=== PATIENT | female | born 1990 ===

== ENCOUNTER 2018-07-09 22:51 | Inpatient (IN) ==
[2018-07-10] MEDS: LACTATED RINGERS 1,000 ML IV SCH ×3 (00:28→19:50)
[2018-07-10] MEDS ORDERED: MEPERIDINE 25 MG/1 ML VIAL IV PRN (01:00)
[2018-07-10] MEDS ORDERED: ONDANSETRON 4 MG/2 ML VIAL IV PRN (01:00)
[2018-07-10] MEDS: ACETAMINOPHEN/CODEINE 300-30 MG TABLET PO PRN (01:05)
[2018-07-10] MEDS ORDERED: DEXTROSE 50% 25 GM/50 ML VIAL IV PRN (01:47)
[2018-07-10] MEDS ORDERED: GLUCAGON 1 MG VIAL IM PRN (01:47)
[2018-07-10] MEDS: AMPICILLIN INJ 2,000 MG in SODIUM CHLORIDE 0.9% 100 ML IV SCH ×4 (03:51→20:50)
[2018-07-10] MEDS: ACETAMINOPHEN 325 MG TABLET PO PRN ×2 (11:32→19:42)
[2018-07-11] MEDS: AMPICILLIN INJ 2,000 MG in SODIUM CHLORIDE 0.9% 100 ML IV SCH ×4 (03:52→21:17)
[2018-07-11] MEDS: LACTATED RINGERS 1,000 ML IV SCH ×3 (04:27→22:13)
[2018-07-11] MEDS: ACETAMINOPHEN/CODEINE 300-30 MG TABLET PO PRN (07:20)
[2018-07-11] MEDS: MULTIVITAMIN (PRENATAL) TABLET PO SCH (08:31)
[2018-07-11] MEDS: ACETAMINOPHEN 325 MG TABLET PO SCH ×2 (15:17→21:16)
[2018-07-12] MEDS: ACETAMINOPHEN/CODEINE 300-30 MG TABLET PO PRN (00:21)
[2018-07-12] MEDS: AMPICILLIN INJ 2,000 MG in SODIUM CHLORIDE 0.9% 100 ML IV SCH ×2 (03:48→09:30)
[2018-07-12] MEDS: ACETAMINOPHEN 325 MG TABLET PO SCH ×2 (03:49→09:30)
[2018-07-12] MEDS: LACTATED RINGERS 1,000 ML IV SCH (06:42)
[2018-07-12] MEDS: MULTIVITAMIN (PRENATAL) TABLET PO SCH (09:30)
[2018-07-12 11:26] VITALS: BP 104/64
[2018-07-12] MEDS ORDERED: FLUTICASONE 50 MCG NASAL SPRAY 16 GM BOTTLE BOTH NARES SCH (13:12)
== END 2018-07-12 14:15 | disposition home or self-care (01) | DRG 566 ==
LOC: N.LDOUT 22:51 → N.LD 22:51 → N.OB 07-10 00:42
PROVIDERS: ADMIT Obstetrics & Gynecology; ATTEND Obstetrics & Gynecology

== ENCOUNTER 2018-09-01 05:47 | Inpatient (IN) ==
[2018-09-01] MEDS ORDERED: MEPERIDINE 50 MG/1 ML VIAL IV PRN (06:15)
[2018-09-01] MEDS ORDERED: ONDANSETRON 4 MG/2 ML VIAL IV PRN ×2 (06:15→14:33)
[2018-09-01] MEDS ORDERED: BUTORPHANOL 2 MG/ML VIAL IV PRN (06:15)
[2018-09-01 06:29] LABS: Basophils # 0.1 10*3/uL (0.0-0.2); Basophils % 0.5 % (0.0-0.8); Eosinophils # 0.5 10*3/uL (0.0-0.87); Eosinophils % 4.6 % (0.00-10.9); Hemoglobin 10.9 GM/DL (12.0-16.0); Lymphocytes # 2.5 10*3/uL (1.4-4.0); Lymphocytes % 24.4 % (21.3-54.2); Mean Corpuscular HGB Conc 32.1 GM/DL (32-36); Mean Corpuscular Volume 85.9 FL (87-102); Mean Platelet Volume 9.4 FL (9.6-12.0); Monocytes % 6.9 % (1.7-12.7); Neutrophils % 62.6 % (38.7-73.9); Platelet Count 251 T/CUMM (130-400); Red Blood Count 3.96 MC/CUMM (3.8-5.5); Red Cell Distribution Width 15.9 % (9.3-17.3); White Blood Count 10.4 T/CUMM (4-12)
[2018-09-01] MEDS ORDERED: OXYTOCIN/LR 20 UNIT/1,000 ML BAG IV SCH (06:30)
[2018-09-01] MEDS ORDERED: LACTATED RINGERS 1,000 ML IV SCH ×2 (06:30→07:00)
[2018-09-01] MEDS ORDERED: FAMOTIDINE 20 MG/2 ML VIAL IV ONE (06:40)
[2018-09-01] MEDS ORDERED: CITRIC ACID/SODIUM CITRATE 30 ML UDCUP PO ONE (06:40)
[2018-09-01] MEDS ORDERED: ceFAZolin 2,000 MG in PREMIX 1 EACH IV ONE (06:43)
[2018-09-01 06:54] LABS: Alanine Aminotransferase < 9 U/L (13-56); Albumin 2.3 G/DL (3.4-5.0); Alkaline Phosphatase 303 U/L (45-117); Aspartate Amino Transferase 18 U/L (0-37); Bilirubin,Total < 0.39 MG/DL (0.2-1.0); Blood Urea Nitrogen 12 MG/DL (7-18); Calcium 8.7 MG/DL (8.5-10.1); Glucose 85 MG/DL (74-106); Osmolality,Calculated 281.1 MOS/KG (273-304)
[2018-09-01] MEDS ORDERED: ceFAZolin 2,000 MG in SYRINGE 1 EACH IV ONE (07:00)
[2018-09-01] MEDS ORDERED: OXYTOCIN 10 UNIT/ML VIAL IM ONE (08:49)
[2018-09-01] MEDS ORDERED: OXYTOCIN/LR 30 UNIT/1,000 ML BAG IV ONE (09:00)
[2018-09-01] MEDS ORDERED: KETOROLAC 60 MG/2 ML VIAL IM ONE (11:29)
[2018-09-01] MEDS ORDERED: PHENYLEPHRINE 1 MG/10 ML SYRINGE IV ONE ×2 (11:29→13:59)
[2018-09-01] MEDS ORDERED: MORPHINE 10 MG/10 ML VIAL ONE (11:29)
[2018-09-01] MEDS ORDERED: DEXAMETHASONE 4 MG/1 ML VIAL ONE (11:29)
[2018-09-01] MEDS ORDERED: EPINEPHrine 1 MG/ML VIAL ONE (11:29)
[2018-09-01] MEDS ORDERED: fentaNYL 100 MCG/2 ML VIAL ONE (11:29)
[2018-09-01] MEDS ORDERED: BUPIVACAINE SPINAL 0.75% 2 ML AMP SPINAL ONE (11:29)
[2018-09-01] MEDS ORDERED: BUPIVACAINE 0.5% 50 ML VIAL ONE (11:30)
[2018-09-01] MEDS ORDERED: methylPREDNISolone SOD SUC 40 MG/1 ML VIAL IV ONE (13:15)
[2018-09-01 13:24] LABS: Cord Arterial Blood HCO3 18.9 MMOL/L
[2018-09-01 13:26] LABS: Cord Venous Blood HCO3 19.9 MMOL/L; Cord Venous Blood PCO2 43.4 MMHG; Cord Venous Blood PO2 37.1
[2018-09-01] MEDS ORDERED: hydrOXYzine HCL 25 MG/1 ML VIAL IM PRN (13:56)
[2018-09-01] MEDS ORDERED: diphenhydrAMINE 50 MG/1 ML VIAL IV PRN (13:56)
[2018-09-01] MEDS ORDERED: HYDROmorphone 2 MG/1 ML VIAL IV PRN (13:56)
[2018-09-01] MEDS ORDERED: ePHEDrine 50 MG/ML AMP ONE (14:01)
[2018-09-01] MEDS ORDERED: RHO(D) IMMUNE GLOBULIN 300 MCG SYRINGE IM ONE (14:33)
[2018-09-01] MEDS ORDERED: OXYTOCIN/LR 20 UNIT/1,000 ML BAG IV ONE (14:33)
[2018-09-01] MEDS ORDERED: SIMETHICONE CHEW 80 MG TABLET PO PRN (14:33)
[2018-09-01] MEDS ORDERED: MAGNESIUM HYDROXIDE SUSP 30 ML UDCUP PO PRN (14:33)
[2018-09-01] MEDS ORDERED: ACETAMINOPHEN 325 MG TABLET PO PRN (14:33)
[2018-09-01 14:40] LABS: Bacteria,Urine Occasional /HPF (Few); Mucus,Urine Few /LPF (Occasional); RBC,Urine 5 /HPF (0-4); Squamous Epithelial Cell,Urine Many /HPF (0-10); Transitional Epi Cells,Urine Occasional /HPF (<1); WBC,Urine 15 /HPF (0-6)
[2018-09-01 14:43] LABS: Apearance,Urine Cloudy (Clear); Urine Color Yellow (Yellow); Urine Specific Gravity 1.025 (1.001-1.035)
[2018-09-01 14:44] LABS: Bilirubin,Urine Negative (Negative); Blood, Urine Negative (Negative); Glucose,Urine (UA) Negative (Negative); Ketones,Urine Negative (Negative); Nitrite,Urine Negative (Negative); Protein,Urine 30 MG/DL
[2018-09-01] MEDS: KETOROLAC 30 MG/1 ML VIAL IV SCH (20:11)
[2018-09-01] MEDS: ceFAZolin 1,000 MG in SYRINGE 1 EACH IV SCH (20:13)
[2018-09-01] MEDS: DOCUSATE SODIUM 100 MG CAPSULE PO SCH (20:16)
[2018-09-01] MEDS: LACTATED RINGERS 1,000 ML IV SCH (21:04)
[2018-09-02] MEDS: KETOROLAC 30 MG/1 ML VIAL IV SCH ×2 (01:12→07:20)
[2018-09-02] MEDS: ceFAZolin 1,000 MG in SYRINGE 1 EACH IV SCH (03:48)
[2018-09-02 04:27] LABS: Basophils % 0.1 % (0.0-0.8); Hematocrit 26.9 VOL% (35.7-47.0); Immature Granulocytes % 0.6 %; Immature Granulocytes Absolute 0.11 #; Lymphocytes # 1.5 10*3/uL (1.4-4.0); Lymphocytes % 8.3 % (21.3-54.2); Mean Corpuscular HGB Conc 33.1 GM/DL (32-36); Mean Corpuscular Volume 84.9 FL (87-102); Mean Platelet Volume 10.2 FL (9.6-12.0); Monocytes % 5.3 % (1.7-12.7); Neutrophils % 85.7 % (38.7-73.9); Platelet Count 224 T/CUMM (130-400); Red Blood Count 3.17 MC/CUMM (3.8-5.5); Red Cell Distribution Width 15.6 % (9.3-17.3)
[2018-09-02 04:32] LABS: Hemoglobin 8.9 GM/DL (12.0-16.0); White Blood Count 18.1 T/CUMM (4-12)
[2018-09-02] MEDS: LACTATED RINGERS 1,000 ML IV SCH (04:46)
[2018-09-02] MEDS: DOCUSATE SODIUM 100 MG CAPSULE PO SCH ×2 (08:16→21:15)
[2018-09-02] MEDS: MULTIVITAMIN (PRENATAL) TABLET PO SCH (08:16)
[2018-09-02] MEDS: METOCLOPRAMIDE 10 MG TABLET PO SCH ×3 (08:16→23:49)
[2018-09-02] MEDS: FERROUS SULFATE 325 MG TABLET PO SCH ×2 (09:30→21:15)
[2018-09-03] MEDS: IBUPROFEN 800 MG TABLET PO PRN ×2 (02:40→09:54)
[2018-09-03 07:23] VITALS: BP 127/74
[2018-09-03] MEDS: MULTIVITAMIN (PRENATAL) TABLET PO SCH (09:53)
[2018-09-03] MEDS: FERROUS SULFATE 325 MG TABLET PO SCH (09:53)
[2018-09-03] MEDS: DOCUSATE SODIUM 100 MG CAPSULE PO SCH (09:53)
[2018-09-03] MEDS: METOCLOPRAMIDE 10 MG TABLET PO SCH (11:13)
[2018-09-03] MEDS ORDERED: DIPH/TET/ACEL PERT BOOSTER VACCINE 0.5 ML VIAL IM ONE (11:13)
== END 2018-09-03 14:45 | disposition home or self-care (01) | DRG 540 ==
LOC: N.LD 05:47 → N.OB 17:25
PROVIDERS: ADMIT Obstetrics & Gynecology; ATTEND Obstetrics & Gynecology
PROC: LDCSECT (ICD-10-PCS; 2018-09-01 07:45)

== ENCOUNTER 2019-08-26 07:02 | Inpatient (IN) ==
[2019-08-26] MEDS: LACTATED RINGERS 1,000 ML IV SCH ×2 (07:23→08:24)
[2019-08-26] MEDS ORDERED: CITRIC ACID/SODIUM CITRATE 30 ML UDCUP PO ONE (07:41)
[2019-08-26] MEDS ORDERED: ceFAZolin 2,000 MG in PREMIX 1 EACH IV ONE (07:41)
[2019-08-26] MEDS ORDERED: OXYTOCIN 10 UNIT/ML VIAL IM ONE (07:42)
[2019-08-26] MEDS ORDERED: OXYTOCIN/LR 30 UNIT/1,000 ML BAG IV ONE (07:42)
[2019-08-26] MEDS ORDERED: miSOPROStoL 200 MCG TABLET ONE (07:56)
[2019-08-26] MEDS ORDERED: CARBOPROST TROMETHAMINE 250 MCG/ML AMP IM ONE (07:57)
[2019-08-26] MEDS ORDERED: TRANEXAMIC ACID 1,000 MG/10 ML VIAL ONE (07:57)
[2019-08-26] MEDS ORDERED: OXYTOCIN/LR 20 UNIT/1,000 ML BAG IV ONE ×2 (07:57→10:02)
[2019-08-26] MEDS ORDERED: METHYLERGONOVINE 0.2 MG/1 ML AMP ONE (07:57)
[2019-08-26 07:58] LABS: Basophils % 0.4 % (0.0-0.8); Eosinophils # 0.2 10*3/uL (0.0-0.87); Hematocrit 35.3 VOL% (35.7-47.0); Hemoglobin 11.3 GM/DL (12.0-16.0); Immature Granulocytes % 0.7 %; Immature Granulocytes Absolute 0.08 #; Lymphocytes # 2.2 10*3/uL (1.4-4.0); Lymphocytes % 20.2 % (21.3-54.2); Mean Corpuscular Volume 86.5 FL (87-102); Mean Platelet Volume 9.4 FL (9.6-12.0); Monocytes % 6.8 % (1.7-12.7); Neutrophils % 69.9 % (38.7-73.9); Platelet Count 251 T/CUMM (130-400); Red Blood Count 4.08 MC/CUMM (3.8-5.5); Red Cell Distribution Width 14.5 % (9.3-17.3); White Blood Count 10.7 T/CUMM (4-12)
[2019-08-26] MEDS ORDERED: FAMOTIDINE 20 MG/2 ML VIAL IV ONE (08:02)
[2019-08-26] MEDS ORDERED: PROMETHAZINE 25 MG/1 ML VIAL IM PRN (08:03)
[2019-08-26] MEDS ORDERED: hydrOXYzine HCL 25 MG/1 ML VIAL IM PRN (08:03)
[2019-08-26] MEDS ORDERED: ONDANSETRON 4 MG/2 ML VIAL IV ONE (08:03)
[2019-08-26] MEDS ORDERED: ePHEDrine 50 MG/ML VIAL IV PRN (08:03)
[2019-08-26] MEDS ORDERED: diphenhydrAMINE 50 MG/1 ML VIAL IV PRN (08:03)
[2019-08-26 08:37] LABS: Alanine Aminotransferase 12 U/L (13-56); Albumin 2.1 G/DL (3.4-5.0); Alkaline Phosphatase 229 U/L (45-117); Aspartate Amino Transferase 16 U/L (0-37); Bilirubin,Total < 0.39 MG/DL (0.2-1.0); Blood Urea Nitrogen 9 MG/DL (7-18); Calcium 8.2 MG/DL (8.5-10.1); Estimated Glom Filtration Rate 105 ML/MIN; Glucose 75 MG/DL (74-106); Osmolality,Calculated 278.3 MOS/KG (273-304); Total Protein 7.1 G/DL (6.4-8.3)
[2019-08-26] MEDS ORDERED: DEXAMETHASONE 4 MG/1 ML VIAL ONE ×2 (09:16→14:13)
[2019-08-26 09:30] LABS: Cord Venous Blood HCO3 21.3 MMOL/L; Cord Venous Blood PCO2 43.8 MMHG; Cord Venous Blood PO2 34.2
[2019-08-26 09:40] LABS: Apearance,Urine CLEAR (Clear); Bilirubin,Urine Negative (Negative); Blood, Urine Negative (Negative); Glucose,Urine (UA) Negative (Negative); Ketones,Urine Negative (Negative); Mucus,Urine Occasional /LPF (Occasional); Nitrite,Urine Negative (Negative); Protein,Urine Negative; RBC,Urine 1 /HPF (0-4); Squamous Epithelial Cell,Urine Occasional /HPF (0-10); Urine Color Yellow (Yellow); Urine Specific Gravity 1.016 (1.001-1.035); Urine Urobilinogen < 2.0 EU/DL (0.2-1.0); WBC,Urine 4 /HPF (0-6)
[2019-08-26] MEDS ORDERED: ONDANSETRON 4 MG/2 ML VIAL IV PRN (10:02)
[2019-08-26] MEDS ORDERED: ACETAMINOPHEN 325 MG TABLET PO PRN (10:02)
[2019-08-26] MEDS ORDERED: SIMETHICONE CHEW 80 MG TABLET PO PRN (10:02)
[2019-08-26] MEDS ORDERED: RHO(D) IMMUNE GLOBULIN 300 MCG SYRINGE IM ONE (10:02)
[2019-08-26] MEDS ORDERED: LACTATED RINGERS 1,000 ML IV SCH (10:30)
[2019-08-26] MEDS ORDERED: ceFAZolin 1,000 MG in SYRINGE 1 EACH IV SCH (10:30)
[2019-08-26] MEDS ORDERED: HYDROmorphone 2 MG/1 ML VIAL IV ONE (12:01)
[2019-08-26] MEDS ORDERED: ROPIVACAINE 0.5% 30 ML VIAL ONE (14:13)
[2019-08-26] MEDS ORDERED: PHENYLEPHRINE 1 MG/10 ML SYRINGE IV ONE (14:13)
[2019-08-26] MEDS ORDERED: ONDANSETRON 4 MG/2 ML VIAL ONE (14:13)
[2019-08-26] MEDS ORDERED: BUPIVACAINE SPINAL 0.75% 2 ML AMP SPINAL ONE (14:14)
[2019-08-26] MEDS: ceFAZolin 1,000 MG in SYRINGE 1 EACH IV SCH (16:04)
[2019-08-26 18:11] LABS: Basophils % 0.2 % (0.0-0.8); Hematocrit 33.9 VOL% (35.7-47.0); Hemoglobin 11.2 GM/DL (12.0-16.0); Immature Granulocytes % 0.7 %; Immature Granulocytes Absolute 0.12 #; Lymphocytes # 1.1 10*3/uL (1.4-4.0); Lymphocytes % 6.4 % (21.3-54.2); Mean Corpuscular Volume 85.6 FL (87-102); Mean Platelet Volume 9.2 FL (9.6-12.0); Monocytes % 3.3 % (1.7-12.7); Neutrophils % 89.4 % (38.7-73.9); Platelet Count 242 T/CUMM (130-400); Red Blood Count 3.96 MC/CUMM (3.8-5.5)
[2019-08-26 18:15] LABS: White Blood Count 16.8 T/CUMM (4-12)
[2019-08-26] MEDS: DOCUSATE SODIUM 100 MG CAPSULE PO SCH (20:08)
[2019-08-27] MEDS: ceFAZolin 1,000 MG in SYRINGE 1 EACH IV SCH (00:02)
[2019-08-27] MEDS: IBUPROFEN 800 MG TABLET PO PRN ×2 (04:00→19:45)
[2019-08-27 04:52] LABS: Basophils % 0.2 % (0.0-0.8); Eosinophils # 0.1 10*3/uL (0.0-0.87); Eosinophils % 0.3 % (0.00-10.9); Hematocrit 29.2 VOL% (35.7-47.0); Hemoglobin 10.1 GM/DL (12.0-16.0); Immature Granulocytes % 0.4 %; Immature Granulocytes Absolute 0.06 #; Lymphocytes # 2.9 10*3/uL (1.4-4.0); Lymphocytes % 17.7 % (21.3-54.2); Mean Corpuscular HGB Conc 34.6 GM/DL (32-36); Mean Corpuscular Volume 82.3 FL (87-102); Mean Platelet Volume 9.8 FL (9.6-12.0); Monocytes % 8.9 % (1.7-12.7); Neutrophils % 72.5 % (38.7-73.9); Platelet Count 238 T/CUMM (130-400); Red Blood Count 3.55 MC/CUMM (3.8-5.5); Red Cell Distribution Width 14.2 % (9.3-17.3); White Blood Count 16.3 T/CUMM (4-12)
[2019-08-27] MEDS: MULTIVITAMIN (PRENATAL) TABLET PO SCH (09:00)
[2019-08-27] MEDS: MAGNESIUM HYDROXIDE SUSP 30 ML UDCUP PO PRN ×2 (09:00→19:46)
[2019-08-27] MEDS: DOCUSATE SODIUM 100 MG CAPSULE PO SCH ×3 (09:00→21:18)
[2019-08-27] MEDS: METOCLOPRAMIDE 10 MG TABLET PO SCH ×2 (09:00→16:03)
[2019-08-28] MEDS: METOCLOPRAMIDE 10 MG TABLET PO SCH ×2 (06:42→08:40)
[2019-08-28 07:42] VITALS: BP 108/74
[2019-08-28] MEDS: DOCUSATE SODIUM 100 MG CAPSULE PO SCH (08:40)
[2019-08-28] MEDS: MAGNESIUM HYDROXIDE SUSP 30 ML UDCUP PO PRN (08:40)
[2019-08-28] MEDS: IBUPROFEN 800 MG TABLET PO PRN (08:40)
[2019-08-28] MEDS: MULTIVITAMIN (PRENATAL) TABLET PO SCH (08:40)
== END 2019-08-28 13:40 | disposition home or self-care (01) | DRG 788 ==
LOC: N.LD 07:02 → N.OB 13:22
PROVIDERS: ADMIT Obstetrics & Gynecology; ATTEND Obstetrics & Gynecology
PROC: LDCSECT (ICD-10-PCS; 2019-08-26 08:30)

== ENCOUNTER 2021-11-06 09:45 | Inpatient (IN) ==
[2021-11-06] MEDS ORDERED: CITRIC ACID/SODIUM CITRATE 30 ML UDCUP PO ONE (10:08)
[2021-11-06] MEDS ORDERED: CARBOPROST TROMETHAMINE 250 MCG/ML AMP IM PRN (10:08)
[2021-11-06] MEDS ORDERED: miSOPROStoL 200 MCG TABLET RECTAL PRN (10:08)
[2021-11-06] MEDS ORDERED: ceFAZolin 2,000 MG/50 ML DUPLEX IV ONE (10:08)
[2021-11-06] MEDS ORDERED: OXYTOCIN/LR 20 UNIT/1,000 ML BAG IV ONE ×2 (10:08→16:21)
[2021-11-06] MEDS ORDERED: METHYLERGONOVINE 0.2 MG/1 ML AMP IM PRN (10:08)
[2021-11-06] MEDS ORDERED: FAMOTIDINE 20 MG/2 ML VIAL IV ONE (10:08)
[2021-11-06] MEDS ORDERED: TRANEXAMIC ACID 1,000 MG in SODIUM CHLORIDE 0.9% 100 ML IV PRN (10:08)
[2021-11-06] MEDS ORDERED: OXYTOCIN 10 UNIT/ML VIAL IM ONE (10:11)
[2021-11-06] MEDS ORDERED: LACTATED RINGERS 1,000 ML IV SCH ×2 (10:30→16:30)
[2021-11-06 10:39] LABS: Basophils % 0.3 % (0.0-0.8); Eosinophils # 0.2 10*3/uL (0.0-0.87); Eosinophils % 1.8 % (0.00-10.9); Hematocrit 35.2 VOL% (35.7-47.0); Hemoglobin 11.5 GM/DL (12.0-16.0); Immature Granulocytes % 0.6 %; Immature Granulocytes Absolute 0.06 #; Lymphocytes # 1.7 10*3/uL (1.4-4.0); Lymphocytes % 17.2 % (21.3-54.2); Mean Corpuscular HGB Conc 32.7 GM/DL (32-36); Mean Corpuscular Volume 84.6 FL (87-102); Mean Platelet Volume 9.5 FL (9.6-12.0); Monocytes # 0.5 10*3/uL (0.11-0.8); Monocytes % 4.7 % (1.7-12.7); Neutrophils % 75.4 % (38.7-73.9); Platelet Count 259 T/CUMM (130-400); Red Blood Count 4.16 MC/CUMM (3.8-5.5); Red Cell Distribution Width 15.1 % (9.3-17.3); White Blood Count 9.7 T/CUMM (4-12)
[2021-11-06 10:47] LABS: INR 0.8; PT Patient Result 9.4 SECS (10.1-12.1)
[2021-11-06 10:57] LABS: Alanine Aminotransferase 12 U/L (13-56); Albumin 2.1 G/DL (3.4-5.0); Alkaline Phosphatase 244 U/L (45-117); Aspartate Amino Transferase 12 U/L (0-37); Bilirubin,Total < 0.39 MG/DL (0.20-1.00); Blood Urea Nitrogen 6 MG/DL (7-18); Calcium 8.4 MG/DL (8.5-10.1); Carbon Dioxide 23 MMOL/L (21-32); Chloride 112 MMOL/L (98-107); Glucose 80 MG/DL (74-106); Osmolality,Calculated 277.3 MOS/KG (273-304); Potassium 3.7 MMOL/L (3.5-5.1); Sodium 141 MMOL/L (136-145); Total Protein 6.6 G/DL (6.4-8.2)
[2021-11-06] MEDS ORDERED: buprenorphine HCL 0.3 MG/ML VIAL ONE (14:49)
[2021-11-06] MEDS ORDERED: ONDANSETRON 4 MG/2 ML VIAL ONE (14:49)
[2021-11-06] MEDS ORDERED: PHENYLEPHRINE 1 MG/10 ML SYRINGE IV ONE (14:49)
[2021-11-06] MEDS ORDERED: BUPIVACAINE MPF 0.5% /EPI 30 ML VIAL ONE (14:49)
[2021-11-06] MEDS ORDERED: ACETAMINOPHEN INJ 1,000 MG/100 ML VIAL IV ONE (15:25)
[2021-11-06] MEDS ORDERED: KETOROLAC 30 MG/1 ML VIAL ONE (15:25)
[2021-11-06] MEDS: OXYTOCIN/LR 30 UNIT/1,000 ML BAG IV ONE (15:34)
[2021-11-06 15:47] LABS: Cord Arterial Blood HCO3 21.6 MMOL/L
[2021-11-06 15:50] LABS: Cord Venous Blood HCO3 22.1 MMOL/L; Cord Venous Blood PCO2 48.4 MMHG; Cord Venous Blood PO2 30.1
[2021-11-06 15:58] LABS: Urine Color Yellow (Yellow)
[2021-11-06 15:59] LABS: Bilirubin,Urine Negative (Negative); Blood, Urine Negative (Negative); Glucose,Urine (UA) Negative (Negative); Ketones,Urine 40 mg/dL (Negative); Nitrite,Urine Negative (Negative); Protein,Urine Negative (Negative); Urine Appearance Clear (Clear); Urine Urobilinogen 0.2 eU/dL (<2.0); Urine pH 6.5 (4.5-8.0)
[2021-11-06 16:01] LABS: Mucus,Urine Few /LPF (Occasional); RBC,Urine 1 /HPF (0-4); Squamous Epithelial Cell,Urine Occasional /HPF (0-10)
[2021-11-06] MEDS ORDERED: OXYTOCIN/LR 30 UNIT/1,000 ML BAG IV ONE (16:07)
[2021-11-06] MEDS ORDERED: ONDANSETRON 4 MG/2 ML VIAL IV PRN (16:21)
[2021-11-06] MEDS ORDERED: SIMETHICONE CHEW 80 MG TABLET PO PRN (16:21)
[2021-11-06] MEDS ORDERED: RHO(D) IMMUNE GLOBULIN 300 MCG SYRINGE IM ONE (16:21)
[2021-11-06] MEDS ORDERED: ACETAMINOPHEN 325 MG TABLET PO PRN (16:21)
[2021-11-06] MEDS: IBUPROFEN 800 MG TABLET PO PRN (19:28)
[2021-11-06] MEDS: DOCUSATE SODIUM 100 MG CAPSULE PO SCH (20:24)
[2021-11-06 23:31] LABS: Basophils # 0.1 10*3/uL (0.0-0.2); Basophils % 0.4 % (0.0-0.8); Eosinophils # 0.1 10*3/uL (0.0-0.87); Eosinophils % 0.7 % (0.00-10.9); Hematocrit 30.3 VOL% (35.7-47.0); Hemoglobin 9.9 GM/DL (12.0-16.0); Immature Granulocytes % 0.5 %; Immature Granulocytes Absolute 0.07 #; Lymphocytes # 2.1 10*3/uL (1.4-4.0); Lymphocytes % 15.7 % (21.3-54.2); Mean Corpuscular HGB Conc 32.7 GM/DL (32-36); Mean Corpuscular Volume 84.2 FL (87-102); Mean Platelet Volume 9.6 FL (9.6-12.0); Monocytes # 0.9 10*3/uL (0.11-0.8); Monocytes % 6.8 % (1.7-12.7); Neutrophils % 75.9 % (38.7-73.9); Platelet Count 231 T/CUMM (130-400); White Blood Count 13.6 T/CUMM (4-12)
[2021-11-07] MEDS ORDERED: OXYTOCIN/LR 20 UNIT/1,000 ML BAG IV ONE (00:38)
[2021-11-07] MEDS: ACETAMINOPHEN 500 MG TABLET PO SCH ×3 (00:50→17:02)
[2021-11-07] MEDS: KETOROLAC 30 MG/1 ML VIAL IV SCH ×3 (00:56→16:07)
[2021-11-07 07:29] LABS: Basophils % 0.3 % (0.0-0.8); Eosinophils # 0.2 10*3/uL (0.0-0.87); Eosinophils % 1.7 % (0.00-10.9); Hematocrit 29.3 VOL% (35.7-47.0); Hemoglobin 9.5 GM/DL (12.0-16.0); Immature Granulocytes % 0.6 %; Immature Granulocytes Absolute 0.07 #; Lymphocytes # 1.9 10*3/uL (1.4-4.0); Lymphocytes % 16.3 % (21.3-54.2); Mean Corpuscular HGB Conc 32.4 GM/DL (32-36); Mean Corpuscular Volume 84.7 FL (87-102); Mean Platelet Volume 9.4 FL (9.6-12.0); Monocytes # 0.8 10*3/uL (0.11-0.8); Monocytes % 6.4 % (1.7-12.7); Neutrophils % 74.7 % (38.7-73.9); Platelet Count 211 T/CUMM (130-400); Red Blood Count 3.46 MC/CUMM (3.8-5.5); White Blood Count 11.8 T/CUMM (4-12)
[2021-11-07] MEDS: MAGNESIUM HYDROXIDE SUSP 30 ML UDCUP PO PRN ×2 (08:15→22:16)
[2021-11-07] MEDS: DOCUSATE SODIUM 100 MG CAPSULE PO SCH ×2 (08:15→22:16)
[2021-11-07] MEDS: METOCLOPRAMIDE 10 MG TABLET PO SCH ×2 (08:16→16:07)
[2021-11-07] MEDS: MULTIVITAMIN (PRENATAL) TABLET PO SCH (08:16)
[2021-11-08] MEDS: IBUPROFEN 800 MG TABLET PO PRN ×2 (00:02→09:17)
[2021-11-08] MEDS: DOCUSATE SODIUM 100 MG CAPSULE PO SCH (09:17)
[2021-11-08] MEDS: MULTIVITAMIN (PRENATAL) TABLET PO SCH (09:17)
[2021-11-08 12:07] VITALS: BP 132/87
== END 2021-11-08 12:45 | disposition home or self-care (01) | DRG 539 ==
LOC: N.LD 09:45 → N.OB 22:05
PROVIDERS: ADMIT Obstetrics & Gynecology; ATTEND Obstetrics & Gynecology